=== PATIENT | female | born 1980 | race Caucasian/White ===

== ENCOUNTER 2019-04-15 14:06 | Emergency (ER) | payer OTHER ==
[2019-04-15 14:12] VITALS: BP 171/80; PULSE 80; TEMP 98; BMI 41.3
--- NOTE | 2019-04-15 14:13 | PDOC ---
Rapid Medical Evaluation Time Seen by Provider: 04/15/19 14:10 Medical Evaluation: Allergies Allergy/AdvReac Type Severity Reaction Status Date / Time No Known Allergies Allergy Verified 09/10/14 23:31 04/15/19 14:10 have performed a brief in-person evaluation of this patient. The patient presents with a chief complaint of:10 weeks w/ vaginal bleeding and abd pain. H/o HTN, not taking meds due to ? SE of meds Pertinent physical exam findings:BP 171/80 I have ordered the following:lab/US (Pt known O+ on record here) The patient will proceed to the ED for further evaluation. Discharge Disposition - Diagnosis First trimester bleeding - Referrals - Patient Instructions - Post Discharge Activity
--- NOTE | 2019-04-15 14:49 | PDOC ---
History of Present Illness - General Chief Complaint: Vaginal Bleeding Stated Complaint: 10WK [place]/VAGINAL BLEEDING Time Seen by Provider: 04/15/19 14:10 History Source: Patient Exam Limitations: No Limitations - History of Present Illness Initial Comments: 04/15/19 14:48 Yael Portillo is a 39F @10 weeks with PMH HTN presenting with one day of gross vaginal bleeding. Patient reports 6 days ago had some spotting, saw OBGYN 3 days ago and by then spotting resolved. Today presents with a few hours of gross vaginal bleeding that has been worsening, has passed some clots and products which patient brought with her. Associated with lower abdominal pain that comes in waves, denies nausea, vomiting, dysuria, constipation, diarrhea, hematochezia/melena. LMP 02/01/19. Has 6 children, oldest 24 years, 1st and 3rd children delivered by C/S. HTN treated by methyldopa, but patient reports she gets BURRIS and has not taken in 2 months. Denies any dizziness, chest pain, SOB, weakness. Past History - Past Medical History Allergies/Adverse Reactions: Allergies Allergy/AdvReac Type Severity Reaction Status Date / Time No Known Allergies Allergy Verified 04/15/19 14:12 Home Medications: Ambulatory Orders Vitamins (Sjr) - 1 tab PO DAILY tablet 09/11/14 Asthma: No Cancer: No Cardiac Disorders: No COPD: No Diabetes: No HTN: Yes Seizures: No Thyroid Disease: No - Reproductive History Is Patient Now?: Yes (#): 7 Para: 6 - Psycho Social/Smoking Cessation Hx Smoking History: Never smoked Have you smoked in the past 12 months: No Hx Alcohol Use: No Drug/Substance Use Hx: No Hx Substance Use Treatment: No Review of Systems - Review of Systems Able to Perform ROS?: Yes Constitutional: No: Chills, Fever HEENTM: No: Symptoms Reported Respiratory: No: Cough, Shortness of Breath, Wheezing, Hemoptysis Cardiac (ROS): No: Chest Pain, Edema, Irregular Heart Rate, Lightheadedness, Palpitations, Syncope ABD/GI: Yes: Abdominal cramping. No: Constipated, Diarrhea, Difficulty Swallowing, Nausea, Poor Appetite, Poor Fluid Intake, Vomiting : Yes: Other (vaginal bleeding). No: Burning, Dysuria, Discharge, Frequency, Flank Pain, Hematuria, Incontinence Musculoskeletal: No: Muscle Pain, Muscle Weakness Integumentary: No: Symptoms Reported Neurological: No: Headache, Numbness, Paresthesia, Unsteady Gait, Ataxia Endocrine: No: Symptoms Reported Hematologic/Lymphatic: No: Symptoms Reported All Other Systems: Reviewed and Negative *Physical Exam - Vital Signs Last Vital Signs Temp Pulse Resp BP Pulse Ox 98 F 80 18 171/80 H 98 04/15/19 14:09 04/15/19 14:09 04/15/19 14:09 04/15/19 14:09 04/15/19 14:09 - Physical Exam General Appearance: Yes: Nourished, Appropriately Dressed, Obese. No: Apparent Distress HEENT: positive: EOMI, MERY, Pharynx Normal, Hearing Grossly Normal. negative: Scleral Icterus (R), Scleral Icterus (L), Pharyngeal Erythema, Tonsillar Exudate , Tonsillar Erythema Neck: positive: Trachea midline, Normal Thyroid, Supple. negative: Tender, Lymphadenopathy (R), Lymphadenopathy (L) Respiratory/Chest: positive: Lungs Clear, Normal Breath Sounds. negative: Chest Tender, Respiratory Distress, Accessory Muscle Use, Crackles, Rales, Rhonchi, Stridor, Wheezing Cardiovascular: positive: Regular Rhythm, Regular Rate. negative: Murmur Female Pelvic Exam: positive: normal external exam, cervical os closed, vaginal bleeding, other (about 10cc red blood with large clots in posterior vaginal vault, os closed on bimanual and visual inspection, cervix non-tender to palpation). negative: CMT, discharge Gastrointestinal/Abdominal: positive: Normal Bowel Sounds, Tender (lower abdomen /suprapubic), Soft, Protuberent. negative: Guarding, Rebound Musculoskeletal: positive: Normal Inspection. negative: CVA Tenderness, Vertebral Tenderness Extremity: positive: Normal Capillary Refill, Normal Inspection, Normal Range of Motion, Pelvis Stable. negative: Tender, Swelling, Calf Tenderness Integumentary: positive: Normal Color, Dry, Warm Neurologic: positive: Fully Oriented, Alert, Normal Mood/Affect, Normal Response Medical Decision Making - Medical Decision Making 04/15/19 16:04 Patient is a at 10 weeks presenting with gross vaginal bleeding and abdominal pain with passed products appearing as a complete embryonic sac. Exam shows closed os with significant vaginal bleeding and clots. Presentation consistent with complete miscarriage. Will obtain CBC/CMP/beta quant/UA/UC for evaluation of miscarriage and lower abdominal pain. Getting TVUS for evaluation of retained products. 04/15/19 16:50 TVUS shows no IUP, consistent with completed miscarriage. Blood works not obtained, but not necessary given miscarriage. Known blood type O+, no need for RhoGAM. UA shows blood but no evidence of infection, consistent with blood from vaginal bleed. VS stable, ambulatory, asymptomatic at this time. Stable to be discharged home with OBGYN f/u. Discharge - Discharge Information Problems reviewed: Yes Clinical Impression/Diagnosis: First trimester bleeding Condition: Stable - Follow up/Referral Referrals: Polina Patel MD [Primary Care Provider] - - Patient Discharge Instructions Patient Printed Discharge Instructions: DI for Miscarriage Additional Instructions: Today you were evaluated for vaginal bleeding during . We have evaluated you, and, unfortunately, you have had a miscarriage. Your ultrasound results show that there is no baby in your uterus. Your bleeding will continue, but will decrease in the next few days. As we discussed, this is not your fault. Please follow-up with your OBGYN in the next 2 days for further care. If you experience fever, chills, nausea, vomiting, worse abdominal pain, dizziness, chest pain, shortness of breath, or any other new or concerning symptoms, please return to the emergency room. - Post Discharge Activity
--- NOTE | 2019-04-15 16:22 | PDOC ---
Attending Attestation - Resident Resident Name: Keron Alejandre - ED Attending Attestation I have performed the following: I have examined & evaluated the patient, The case was reviewed & discussed with the resident, I agree w/resident's findings & plan, Exceptions are as noted - HPI HPI: 04/15/19 16:20 39-year-old female, G7, P6, at 10 weeks gestation by LMP presents with lower abdominal cramping and vaginal bleeding for 1 day with passage of products of conception. - Physicial Exam PE: 04/15/19 16:20 Patient is awake and alert, well-nourished, in no significant distress Normocephalic, atraumatic PERRLA, EOMI, conjunctiva pink CTA RRR Abdomen soft, nondistended, minimal suprapubic tenderness is identified; Please see pelvic exam by Dr. Alejandre - Medical Decision Making 04/15/19 16:21 Patient is a 39-year-old female, 7 para 6, 10 weeks gestation who presents with vaginal bleeding with passage of products of conception and abdominal pain. I suspect given the osseous closed on the pelvic exam the patient has completed . Will obtain beta, transvaginal ultrasound, type and screen. Will discuss with OB, likely discharge.
[2019-04-15] MEDS ORDERED: ACETAMINOPHEN 325 MG TABLET (FP) PO ONE (17:01)
[2019-04-15] MEDS ORDERED: ACETAMINOPHEN 325 MG TABLET (FP) ONE (17:04)
[2019-04-15 17:05] LABS: EPI CELLS 0.6 /HPF (0-5/HPF); HYALINE CASTS 1 /lpf (0-8); PH,URINE 5.5 (5.0-8.0); URINE APPEARANCE CLEAR; URINE BILIRUBIN NEGATIVE (NEGATIVE); URINE COLOR YELLOW; URINE GLUCOSE (UA) NEGATIVE (NEGATIVE); URINE KETONE NEGATIVE (NEGATIVE); URINE LEUK ESTERASE NEGATIVE (NEGATIVE); URINE NITRITE NEGATIVE (NEGATIVE); URINE PROTEIN 1+ (NEGATIVE); URINE RBC 1289 /hpf (0-4); URINE WBC 1 /hpf (0-5)
--- NOTE | 2019-04-17 15:54 | PATH ---
Surgical Pathology Report Patient Name: KENNEY CURRAN [facility]. Rec. #: [id number] /Age/Gender: 1980 (Age: 39) / F Account: [id number] Location: EMERGENCY ROOM Taken: 04/15/2019 Received: 04/16/2019 Reported: 04/17/2019 Physicians: Jose Elias Lim M.D. Specimen(s) Received PRODUCTS OF CONCEPTION Clinical History Lower abdominal pain, vaginal bleeding, 10 weeks Final Diagnosis PRODUCTS OF CONCEPTION, PASSAGE: IMMATURE CHORIONIC VILLI, DECIDUA, AND SOMATIC TISSUE CONSISTENT WITH PRODUCTS OF CONCEPTION. Electronically Signed Nicole Jackman M.D. Gross Description Received fresh labeled "products of conception," is a 4.0 x 2.5 x 1.3 cm aggregate of meyers-brown soft tissue fragments. Villous tissue is identified. No definitive somatic tissue is identified. A used equipment sales representative portion is submitted in one cassette, following decalcification. 04/16/2019 [facility]04/16/2019
== END 2019-04-15 17:07 | disposition home or self-care (01) ==
LOC: JER 14:06
DX: O26.891 Other specified pregnancy related conditions, first trimester (principal); N93.9 Abnormal uterine and vaginal bleeding, unspecified
CPT/HCPCS: 76817-TC; 81003; 87086; 88305-TC; 99284-25